=== PATIENT | female | born 1980 | race Caucasian/White ===

== ENCOUNTER → 2016-12-29 | Day surgery (SDC) | payer OTHER ==
[~2016-12-29] MED LIST: EFFEXOR XR150 MG PO; IRON325 M1 PO
[2016-12-29 09:40] LABS: HCT 41.9 % (37.0-47.0); HGB 14.1 g/dl (12.5-16.0); MCH 27.1 pg (25.0-31.0); MCHC 33.7 g/dL (32.0-36.0); MCV 80.6 fL (78.0-100.0); MPV 9.3 fL (6.0-9.5); RBC 5.2 M/uL (4.20-5.40); RDW 13.3 % (11.5-14.0); WBC 6.9 K/uL (4.0-10.5)
[2016-12-29 09:57] LABS: ALBUMIN 4.5 g/dL (3.5-5.0); BILIRUBIN - TOTAL 0.2 mg/dL (0.1-1.0); CREATININE 0.7 mg/dL (0.5-1.0); GLOBULIN (CALCULATION) 2.7 g/dL (2.2-4.2); POTASSIUM 4.1 mmol/L (3.5-5.1); TOTAL PROTEIN 7.2 g/dL (6.4-8.3)
[2016-12-29 10:06] LABS: INR 0.91 (0.9-1.2); PROTHROMBIN TIME 11.9 SECONDS (11.7-14.0); PTT 30.9 SECONDS (23.2-31.4)
[2016-12-29 10:13] LABS: TSH (THYROID STIM HORMONE) 1.08 uIU/mL (0.270-4.200); VITAMIN D (25-OH) 23.49 ng/mL
[2016-12-29 10:19] LABS: FOLIC ACID (SERUM) > 20.0 ng/mL (4.4-31.0)
== END | disposition home or self-care (01) ==
LOC: FAS 09:00
PROVIDERS: Surgery
DX: K29.50 Unspecified chronic gastritis without bleeding (principal); G43.909 Migraine, unspecified, not intractable, without status migrainosus; K21.9 Gastro-esophageal reflux disease without esophagitis; E66.01 Morbid (severe) obesity due to excess calories; F41.9 Anxiety disorder, unspecified; K44.9 Diaphragmatic hernia without obstruction or gangrene; Z91.040 Latex allergy status; Z79.899 Other long term (current) drug therapy; Z90.49 Acquired absence of other specified parts of digestive tract; Z98.890 Other specified postprocedural states; Z87.442 Personal history of urinary calculi; Z87.891 Personal history of nicotine dependence; Z68.43 Body mass index [BMI] 50.0-59.9, adult
CPT/HCPCS: 36415; 80053; 80061; 82306; 82607; 82728; 82746; 83036; 83540; 83550; 84425; 84443; 84703; 85610; 85730; 88305; J2704

== ENCOUNTER 2017-02-28 12:00 | Inpatient (IN) | payer SELFPAY ==
[~2017-02-28] VITALS: Ht 165 cm; Wt 146.5 kg
[2017-02-28 15:19] LABS: BILIRUBIN NEGATIVE (NEGATIVE); BLOOD NEGATIVE Ery/uL (NEGATIVE); CLARITY CLEAR (CLEAR); COLOR YELLOW (YELLOW); GLUCOSE (U) NORMAL (NORMAL); KETONE (U) 2+ (MODERATE) mg/dL (NEGATIVE); LEUKOCYTES NEGATIVE Leu/uL (NEGATIVE); NITRITE NEGATIVE (NEGATIVE); PROTEIN NEGATIVE (NEGATIVE); SPECIFIC GRAVITY >=1.030 (1.001-1.030); UROBILINOGEN 0.2 mg/dL (0.2-1.0); pH 5.5 (5.0-9.0)
[2017-03-01 04:50] LABS: HCT 38.2 % (37.0-47.0); HGB 12.8 g/dl (12.5-16.0); MCH 27.4 pg (25.0-31.0); MCHC 33.5 g/dL (32.0-36.0); MCV 81.8 fL (78.0-100.0); MPV 9.2 fL (6.0-9.5); RBC 4.67 M/uL (4.20-5.40); RDW 14.1 % (11.5-14.0); WBC 15.1 K/uL (4.0-10.5)
[2017-03-01 05:05] LABS: CREATININE 0.6 mg/dL (0.5-1.0); POTASSIUM 4.2 mmol/L (3.5-5.1)
[2017-03-03] MEDS ORDERED: EFFEXOR XR150 MG PO (09:09)
[2017-03-03] MEDS ORDERED: IRON325 M1 PO (09:10)
--- NOTE | 2017-03-03 09:30 | NUR ---
CRYSTAL DRAIN D/C'D;PRESSURES DRESSING APPLIED;PT TOLERATED WELL. IV SITE D/C'D;PRESSURE DRESSING APPLIED;PT TOLERATED WELL
--- NOTE | 2017-03-03 10:23 | NUR ---
DISCHARGE INSTRUCTIONS PROVIDED;PT VERBALIZED UNDERSTANDING;REQUESTED TO AMBULATE TO [facility];DISCHARGED FROM FACILITY.
== END 2017-03-03 10:20 | disposition home or self-care (01) | DRG 620 ==
LOC: FMS 12:00 → FTCU 16:50
PROVIDERS: ADMIT Surgery
PROC: 0DB64Z3 Excision of Stomach, Percutaneous Endoscopic Approach, Vertical (ICD-10-PCS; principal; 2017-02-28 12:45)
PROC: 0DJ08ZZ Inspection of Upper Intestinal Tract, Via Natural or Artificial Opening Endoscopic (ICD-10-PCS; 2017-02-28 12:45)
DX: E66.01 Morbid (severe) obesity due to excess calories (principal); F32.0 Major depressive disorder, single episode, mild; E55.9 Vitamin D deficiency, unspecified; Z68.43 Body mass index [BMI] 50.0-59.9, adult; Z91.040 Latex allergy status; K44.9 Diaphragmatic hernia without obstruction or gangrene; F41.9 Anxiety disorder, unspecified; Z87.891 Personal history of nicotine dependence; R12 Heartburn
CPT/HCPCS: 36415; 74240; 80048; 81003; 82150; 84703; 86850; 86900; 86901; 88307; 94010; J0131; J0690; J1170; J1885; J1980; J2405; J2704; J3010; J3411; J3475